=== PATIENT | female | born 1995 | race Caucasian/White ===

== ENCOUNTER 2022-06-24 06:03 | Inpatient (IN) | payer OTHER ==
[2022-06-24] VITALS (32 sets, daily range): BP systolic 108–154; BP diastolic 60–96; PULSE 63–94; TEMP 97.7–98.7
[~2022-06-24] VITALS: Ht 160 cm; Wt 118.2 kg
[2022-06-24 07:20] LABS: BASO % 0.4 % (0.0-2.0); EOS # 0.1 K/mm3 (0.0-0.7); EOS % 1.1 % (0.0-4.0); GRAN # 7.2 K/mm3 (1.4-6.5); HEMATOCRIT 38.2 % (37.0-47.0); HEMOGLOBIN 12.8 g/dl (12.5-16.0); LYMPH # 2.2 K/mm3 (1.2-3.4); MEAN CELL VOLUME 89 fl (80.0-100.0); MEAN CORPUSCULAR HEMOGLOBIN 30 pg (27-31); MEAN CORPUSCULAR HGB CONC 34 g/dl (33.0-37.0); MEAN PLATELET VOLUME 11.8 fl (7.4-10.4); MONO # 0.7 K/mm3 (0.1-0.6); PLATELET COUNT 254 K/mm3 (130-400); RED BLOOD COUNT 4.31 M/mm3 (4.10-5.30); REDCELL DISTRIBUTION WIDTH-CV 13.5 % (11.5-14.5)
[2022-06-24 07:38] LABS: ALBUMIN 2.9 gm/dL (3.5-5.0); BILIRUBIN,TOTAL 0.3 mg/dL (0.2-1.2); CALCIUM 9.5 mg/dL (8.4-10.2); CREATININE, serum 0.69 mg/dL (0.57-1.11); TOTAL PROTEIN 6.1 gm/dL (6.2-8.1)
[2022-06-24] MEDS ORDERED: BUSPAR10 MG PO (07:55)
[2022-06-24] MEDS ORDERED: ZOVIRAX400 MG PO (07:56)
[2022-06-24] MEDS ORDERED: CLARITIN 1010 MG/TAB PO (07:56)
[2022-06-24] MEDS ORDERED: PRENATAL TABLET PO (07:56)
--- NOTE | 2022-06-24 12:02 | NUR ---
PATIENT UP TO RESTROOM. ASSISTED BACK INTO BED.
--- NOTE | 2022-06-24 12:11 | NUR ---
1040 ANESTHESIA AT THE BEDSIDE. PITOCIN PLACED ON STANDBY WHILE SITTING UP FOR EPIDURAL. 1041 BABY TAKEN OFF MONITOR WHILE SITTING UP FOR EPIDURAL. 1042 TIME OUT. 1047 SINGLE SHOT DONE, VITALS Q 5 MIN STARTED. 1052 PATIENT LAID BACK, PLACED BACK ON MONITOR. 1053 PITOCIN RESTARTED.
--- NOTE | 2022-06-24 13:26 | NUR ---
1237 PATIENT TURNED RIGHT SIDE LATERAL. 1242 LATE DECELS NOTED, TURNED LEFT SIDE LATERAL 1245 RETURNED TO SEMI FOWLERS POSITION
--- NOTE | 2022-06-24 13:35 | NUR ---
1249 SVE PREFORMED 1254 MD AT BESIDE SVE PREFORMED . WILL BE BACK AFTER SEEING ANOTHER PATIENT.
--- NOTE | 2022-06-24 15:40 | NUR ---
PATIENT STATED SHE IS FEELING MORE PRESSURE. 1350 SVE PATIENT 10/100/+1. MD OUT AT NURSING STATION AND INFORMED. 1400 PATIENT PRACTICE PUSH AND ABLE TO PUSH BABY DOWN TO PLUS TWO STATION.
--- NOTE | 2022-06-24 15:55 | NUR ---
1350 PATIENT STARTED TO FEEL PRESSURE. SVE 10/+1 MD MADE AWARE AND AT NURSING STATION, STATED TO PRACTICE PUSH. 1400 BEGAN PRACTICING PUSHING. MOVED FROM +1 STATION TO +2 STATION. 1403 SAL TAKEN OUT 1405 MD AT BEDSIDE. PATIENT PREPPED FOR DELIVERY. 1407 PATIENT BEGAN PUSHING. MD AND RN REVIEWED STRIP. 1412 TOCO TAKEN OFF AND BEGAN TO PALPATE CONTRACTIONS. FIRM CONTRACTIONS WITH A RESTING OF SOFT Q 3 TO 4 MINS. 1420 DELIVERY OF , VIABLE BABY BOY PLACED ON MOMS ABDOMEN. 1424 DELIVERY OF PLACENTA. PITOCIN STARTED. PATIENT CLEANED UP. 1445 RECOVERY BEGAN.
[2022-06-25 01:30] VITALS: BP 131/82; PULSE 60; TEMP 97.7
[2022-06-25 07:54] LABS: HEMOGLOBIN 11.9 g/dl (12.5-16.0)
[2022-06-25 07:56] LABS: HEMATOCRIT 35.4 % (37.0-47.0)
[2022-06-25] MEDS ORDERED: IBU600 MG PO (08:54)
--- NOTE | 2022-06-25 09:55 | NUR ---
Initial visit attempt; Patient out of room. Straddle Buggy Operator left card offering congratulations and God's blessings for the of their son and information regarding the availability of Spiritual Care at our hospital.
[2022-06-25 10:41] VITALS: BP 145/98; PULSE 85; TEMP 97.7
== END 2022-06-25 10:55 | disposition home or self-care (01) | DRG 768 ==
LOC: LDR 06:03 → OB 17:25
PROVIDERS: ADMIT Obstetrics & Gynecology
PROC: 10E0XZZ Delivery of Products of Conception, External Approach (ICD-10-PCS; principal; 2022-06-24)
PROC: 0UBGXZZ Excision of Vagina, External Approach (ICD-10-PCS; 2022-06-24)
PROC: 0KQM0ZZ Repair Perineum Muscle, Open Approach (ICD-10-PCS; 2022-06-24)
PROC: 3E033VJ Introduction of Other Hormone into Peripheral Vein, Percutaneous Approach (ICD-10-PCS; 2022-06-24)
PROC: 10907ZC Drainage of Amniotic Fluid, Therapeutic from Products of Conception, Via Natural or Artificial Opening (ICD-10-PCS; 2022-06-24)
DX: O13.4 Gestational [pregnancy-induced] hypertension without significant proteinuria, complicating childbirth (principal); Z37.0 Single live birth; O98.32 Other infections with a predominantly sexual mode of transmission complicating childbirth; Z3A.39 39 weeks gestation of pregnancy; O99.214 Obesity complicating childbirth; O99.824 Streptococcus B carrier state complicating childbirth; O99.344 Other mental disorders complicating childbirth; F32.A Depression, unspecified; F41.9 Anxiety disorder, unspecified; A60.09 Herpesviral infection of other urogenital tract; O70.1 Second degree perineal laceration during delivery; O99.892 Other specified diseases and conditions complicating childbirth; Z86.16 Personal history of COVID-19; Z23 Encounter for immunization
CPT/HCPCS: J2540; J2590; J2795; J7120